=== PATIENT | female | born 1995 | race Caucasian/White ===

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

== ENCOUNTER → 2017-11-05 | Outpatient (REF) | payer OTHER ==
[2017-11-05 22:20] LABS: CHLAMYDIA DNA AMPLIFICATION NEGATIVE (NEGATIVE); GC DNA AMPLIFICATION NEGATIVE (NEGATIVE)
== END ==
LOC: M LAB REF 17:02
DX: R10.2 Pelvic and perineal pain (principal)

== ENCOUNTER → 2017-11-08 | Outpatient (CLI) | payer OTHER | LOC: M RAD 11:14 | DX: R10.2 Pelvic and perineal pain (principal); Z97.5 Presence of (intrauterine) contraceptive device | CPT/HCPCS: 76856 ==

== ENCOUNTER → 2018-08-10 | Outpatient (REF) | payer OTHER | LOC: M LAB REF 09:52 | DX: J03.90 Acute tonsillitis, unspecified (principal) | CPT/HCPCS: 87081 ==

== ENCOUNTER → 2018-08-14 | Outpatient (REF) | payer OTHER ==
[2018-08-14 20:02] LABS: CHLAMYDIA DNA AMPLIFICATION NEGATIVE (NEGATIVE); GC DNA AMPLIFICATION NEGATIVE (NEGATIVE)
== END ==
LOC: M LAB REF 17:24
DX: Z12.4 Encounter for screening for malignant neoplasm of cervix (principal); R87.610 Atypical squamous cells of undetermined significance on cytologic smear of cervix (ASC-US)
CPT/HCPCS: 87591

== ENCOUNTER → 2018-10-17 | Outpatient (REF) | payer OTHER | LOC: M LAB REF 15:18 | PROVIDERS: ATTEND Physician Assistant | DX: J02.9 Acute pharyngitis, unspecified (principal) ==

== ENCOUNTER 2018-12-17 10:50 | Emergency (ER) | payer OTHER ==
[~2018-12-17] VITALS: Ht 170.2 cm; Wt 76.4 kg
[2018-12-17] MEDS ORDERED: SKYL13.5 IU (10:56)
[2018-12-17 11:45] LABS: BASO % 0.4 % (0.0-1.0); EOS % 0.2 % (0.0-3.0); HEMOGLOBIN 15.1 g/dl (12.0-15.5); LYMPH # 2.4 10^3/uL (1.5-6.5); LYMPH % 22.7 % (24.0-44.0); MEAN CORPUSCULAR HEMOGLOBIN 30.9 pg (27.0-33.0); MEAN CORPUSCULAR HGB CONC 32.8 g/dl (32.0-36.5); MEAN CORPUSCULAR VOLUME 94.1 fl (80.0-96.0); MONO # 0.8 10^3/uL (0.0-0.8); MONO % 7.7 % (0.0-5.0); NEUTROPHILS # 7.1 10^3/uL (1.8-7.7); NEUTROPHILS % 68.6 % (36.0-66.0); PLATELET COUNT, AUTOMATED 280 10^3/uL (150-450); RED BLOOD COUNT 4.89 10^6/uL (4.00-5.40); WHITE BLOOD COUNT 10.4 10^3/uL (4.0-10.0)
--- NOTE | 2018-12-17 11:45 | REP ---
CHEST, TWO VIEWS: There is no evidence of acute infiltrate. No pleural effusion is seen. The heart is normal in size. The mediastinal silhouette is unremarkable. The visualized osseous structures are intact. IMPRESSION: No acute pulmonary disease. Electronically Signed by Tristan Alejandre MD 12/17/2018 11:01 P
[2018-12-17 12:25] LABS: BLOOD UREA NITROGEN 10 MG/DL (7-18); CALCIUM LEVEL 9.5 MG/DL (8.5-10.1); CARBON DIOXIDE LEVEL 29 MEQ/L (21-32); CHLORIDE LEVEL 104 MEQ/L (98-107); CREATININE FOR GFR 0.76 MG/DL (0.55-1.30); GLOMERULAR FILTRATION RATE > 60.0 (>60); GLUCOSE, FASTING 98 MG/DL (70-100); POTASSIUM SERUM 4.2 MEQ/L (3.5-5.1); SODIUM LEVEL 139 MEQ/L (136-145)
[2018-12-17] MEDS ORDERED: NAPR-50 PO (12:35)
[2018-12-17 12:39] VITALS: BP 141/68
--- NOTE | 2018-12-17 20:34 | ECGEPIP ---
Stationary ECG Study [facility] - ED Test Date: 2018-12-17 Pat Name: JHONATHAN UNGER Department: Room: - Gender: F Inspector Fabric: AMANDA : 1995 Requested By: ARISTIDES WOOD PA-C. Order Number: [id number] Reading MD: Bill Payan Measurements Intervals [place] Rate: 66 P: 44 DE: 173 QRS: 39 QRSD: 80 T: 31 QT: 389 QTc: 410 Interpretive Statements SINUS RHYTHM Electronically Signed On 12-17-2018 20:33:52 EST by Bill Payan
== END 2018-12-17 12:42 | disposition home or self-care (01) ==
LOC: M ED 10:50
DX: F41.9 Anxiety disorder, unspecified (principal); Z97.5 Presence of (intrauterine) contraceptive device; F17.210 Nicotine dependence, cigarettes, uncomplicated

== ENCOUNTER → 2019-03-06 | Outpatient (REF) | payer OTHER ==
[~2019-03-06] MED LIST: NAPR-837 PO; SKYL13.5 IU
[2019-03-06 20:44] LABS: CHLAMYDIA DNA AMPLIFICATION NEGATIVE (NEGATIVE); GC DNA AMPLIFICATION NEGATIVE (NEGATIVE)
== END ==
LOC: M LAB REF 16:53
PROVIDERS: ATTEND Obstetrics & Gynecology
DX: Z11.3 Encounter for screening for infections with a predominantly sexual mode of transmission (principal)

== ENCOUNTER → 2019-05-14 | Outpatient (REF) | payer OTHER ==
[2019-05-14 13:05] LABS: BASO # 0.1 10^3/uL (0.0-0.2); BASO % 0.7 % (0.0-1.0); C REACTIVE PROTEIN QUANTITATIV < 0.30 MG/DL (0.00-0.30); EOS # 0.1 10^3/uL (0.0-0.50); EOS % 1.1 % (0.0-3.0); HEMATOCRIT 44.9 % (36.0-47.0); HEMOGLOBIN 14.8 g/dl (12.0-15.5); LYMPH # 2.4 10^3/uL (1.5-6.5); LYMPH % 34.3 % (24.0-44.0); MEAN CORPUSCULAR HEMOGLOBIN 31.3 pg (27.0-33.0); MEAN CORPUSCULAR VOLUME 94.9 fl (80.0-96.0); MONO # 0.4 10^3/uL (0.0-0.8); NEUTROPHILS # 4.1 10^3/uL (1.8-7.7); NEUTROPHILS % 57.8 % (36.0-66.0); PLATELET COUNT, AUTOMATED 287 10^3/uL (150-450); RED BLOOD COUNT 4.73 10^6/uL (4.00-5.40); RHEUMATOID FACTOR QUANT 22.3 IU/ML (<15.0)
[2019-05-14 14:47] LABS: ERYTHROCYTE SEDIMENTATION RATE 6 mm/hr (0-20)
[2019-05-21 00:14] LABS: ANCA-ATYPICAL <1:20 titer (Neg:<1:20); ANGIOTENSIN 1 CONVERTING ENZYM 33 U/L (14-82); ANTI DOUBLE STRAND-DNA AB 11 IU/mL (0-9); ANTINUCLEAR ANTIBODIES DIRECT Positive (Negative); CYCLIC CITRULLINATED PEPTIDE 6 units (0-19); CYTOPLASMIC NEUTROP AB ANCA-C <1:20 titer (Neg:<1:20); HLA-B27 Negative (.); Lyme Disease IgG Ab 18 kDa Ban Present (.); Lyme Disease IgG Ab 23 kDa Ban Absent (.); Lyme Disease IgG Ab 28 kDa Ban Present (.); Lyme Disease IgG Ab 30 kDa Ban Absent (.); Lyme Disease IgG Ab 39 kDa Ban Absent (.); Lyme Disease IgG Ab 41 kDa Ban Present (.); Lyme Disease IgG Ab 45 kDa Ban Absent (.); Lyme Disease IgG Ab 58 kDa Ban Absent (.); Lyme Disease IgG Ab 66 kDa Ban Absent (.); Lyme Disease IgG Ab 93 kDa Ban Present (.); Lyme Disease IgG West Blot Int Negative (.); Lyme Disease IgG/IgM Antibodie 0.97 ISR (0.00-0.90); Lyme Disease IgM Ab 23 kDa Ban Present (.); Lyme Disease IgM Ab 39 kDa Ban Absent (.); Lyme Disease IgM Ab 41 kDa Ban Absent (.); Lyme Disease IgM Ab Quantitati 0.81 index (0.00-0.79); Lyme Disease IgM West Blot Int Negative (.); PERINUCLEAR AB ANCA-P <1:20 titer (Neg:<1:20); RNP ANTIBODIES 0.3 AI (0.0-0.9); SJOGREN'S ANTI SS-A <0.2 AI (0.0-0.9); SJOGREN'S ANTI SS-B <0.2 AI (0.0-0.9); SMITH ANTIBODIES <0.2 AI (0.0-0.9); TREPONEMA ANTIBODY IgM <0.9 I.V. (.)
== END ==
LOC: M LABDRWAD 12:08
PROVIDERS: ATTEND Ophthalmology
DX: H20.9 Unspecified iridocyclitis (principal)

== ENCOUNTER → 2019-05-26 | Outpatient (REF) | payer OTHER | LOC: M LAB REF 16:17 | PROVIDERS: ATTEND Physician Assistant Medical | DX: N39.0 Urinary tract infection, site not specified (principal) ==

== ENCOUNTER 2019-07-05 00:50 | Emergency (ER) | payer OTHER ==
[~2019-07-05] VITALS: Ht 167.6 cm; Wt 79.5 kg
[2019-07-05] MEDS ORDERED: ONDANSETRON 4 MG ORAL DISINTEGRATING TAB (Q0162 PER 1MG) PO ONE (02:45)
[2019-07-05] MEDS ORDERED: ADACEL/BOOSTRIX VACCINE (DIPHTH/PERTUSS/ACELL/TETANUS)0.5ML SYR (90715) IM ONE (03:00)
[2019-07-05] MEDS ORDERED: cefTRIAXone SOD 1 GM in D5W MINI-BAG PLUS 50 ML IV ONE (03:00)
[2019-07-05] MEDS ORDERED: KETOROLAC 30 MG/ML VIAL (J1885) IV ONE (03:00)
[2019-07-05] MEDS ORDERED: LIDOCAINE 1% MDV 20ML VIAL IM ONE (03:00)
[2019-07-05] MEDS ORDERED: AUGM875T28 PO (04:32)
[2019-07-05] MEDS ORDERED: AUGMENTIN 875 MG TAB PO ONE (04:45)
[2019-07-05 04:56] VITALS: BP 134/79
--- NOTE | 2019-07-06 07:06 | REP ---
BILATERAL WRIST SERIES: Four views of bilateral wrists were performed. There is no acute fracture, dislocation or intrinsic bone disease. Joint spaces are normal. No radiopaque foreign body is seen in the soft-tissues. IMPRESSION: Negative bilateral wrist series. Electronically Signed by Tristan Alejandre MD 07/06/2019 09:10 A
--- NOTE | 2019-07-06 07:09 | REP ---
BILATERAL HAND SERIES: Four views of the bilateral hands are performed. There is no evidence of acute fracture, dislocation, or intrinsic bone disease. Joint spaces are unremarkable. No radiopaque foreign body is seen in the soft-tissues. IMPRESSION: Negative bilateral hand series. Electronically Signed by Tristan Alejandre MD 07/06/2019 09:10 A
== END 2019-07-05 04:57 | disposition home or self-care (01) ==
LOC: M ED 00:50
DX: S61.412A Laceration without foreign body of left hand, initial encounter (principal); S61.411A Laceration without foreign body of right hand, initial encounter; S61.432A Puncture wound without foreign body of left hand, initial encounter; S61.431A Puncture wound without foreign body of right hand, initial encounter; S61.239A Puncture wound without foreign body of unspecified finger without damage to nail, initial encounter; S60.511A Abrasion of right hand, initial encounter; S60.512A Abrasion of left hand, initial encounter; S60.419A Abrasion of unspecified finger, initial encounter; W54.0XXA Bitten by dog, initial encounter; Y92.098 Other place in other non-institutional residence as the place of occurrence of the external cause; F17.200 Nicotine dependence, unspecified, uncomplicated; Z97.5 Presence of (intrauterine) contraceptive device
CPT/HCPCS: 12001; 73110; 73130; 90471; 90715; 96374; 96375; 99284; J0696; J1885; Q0162

== ENCOUNTER 2019-09-01 02:48 | Emergency (ER) | payer MEDICAID, OTHER ==
[~2019-09-01] VITALS: Ht 167.6 cm; Wt 77.3 kg
[2019-09-01 02:48] VITALS: BP 144/67
[~2019-09-01 02:48] MED LIST changes: -PARO20TA3
[2019-09-01] MEDS ORDERED: PARO20TA3 (03:40)
== END 2019-09-01 05:59 | disposition left against medical advice (07) ==
LOC: M ED 02:48
DX: Z53.21 Procedure and treatment not carried out due to patient leaving prior to being seen by health care provider (principal)

== ENCOUNTER → 2019-09-01 | Outpatient (CLI) | payer MEDICAID ==
[~2019-09-01] MED LIST changes: +AUGM875T28 PO; +PARO20TA3
--- NOTE | 2019-09-01 14:33 | REP ---
Four views left wrist: 09/01/2019. Indication: Pain following injury. Comparison: 07/05/2019. Findings: There is no acute fracture, subluxation or dislocation. No lytic or blastic lesions of the visualized bones are present. Impression: No acute osseous left wrist injury. Electronically Signed by Puneet Aguirre DO 09/01/2019 02:24 P
== END ==
LOC: M ADAMS 14:00
PROVIDERS: ATTEND Family Medicine
DX: S41.152A Open bite of left upper arm, initial encounter (principal); W18.30XA Fall on same level, unspecified, initial encounter; Y92.009 Unspecified place in unspecified non-institutional (private) residence as the place of occurrence of the external cause

== ENCOUNTER → 2019-09-29 | Outpatient (CLI) | payer MEDICAID, OTHER ==
[~2019-09-29] MED LIST changes: +PARO20TA3
--- NOTE | 2019-09-29 17:40 | REP ---
Four views left hand: 09/29/2019. Indication: Left hand pain. Comparison: 07/05/2019. Findings: There is no acute fracture, subluxation or dislocation. No lytic or blastic lesions are present. No focal soft tissue abnormalities are detected. Joint spaces are unremarkable. Impression: No acute osseous injury of the left hand. Electronically Signed by Puneet Aguirre DO 09/29/2019 05:31 P
== END ==
LOC: M ADAMS 17:09
PROVIDERS: ATTEND Physician Assistant
DX: M79.642 Pain in left hand (principal)

== ENCOUNTER → 2019-09-30 | Outpatient (REF) | payer OTHER, MEDICAID ==
[2019-09-30 19:31] LABS: CHLAMYDIA DNA AMPLIFICATION NEGATIVE (NEGATIVE); GC DNA AMPLIFICATION NEGATIVE (NEGATIVE)
== END ==
LOC: M SFHCSACK 16:34
PROVIDERS: ATTEND Obstetrics & Gynecology
DX: Z01.419 Encounter for gynecological examination (general) (routine) without abnormal findings (principal)

== ENCOUNTER → 2019-10-21 | Outpatient (CLI) | payer OTHER ==
--- NOTE | 2019-10-22 07:11 | ECHO ---
DATE OF PROCEDURE: 10/21/2019 REFERRING PROVIDER: Shital Doty's delivery driver assistant. INDICATION: Chest pain unspecified. HEIGHT: 5 feet 6 inches. WEIGHT: 138 pounds. 2D MEASUREMENTS: Ventricular septum - 0.86 cm Posterior wall - 0.91 cm Left ventricle diastole - 4.6 cm Left ventricle systole - 3.0 cm Aortic annulus - 1.9 cm Aortic root - 2.4 cm Left atrium 3.0 cm Inferior vena cava - 1.7 cm DOPPLER MEASUREMENTS: No aortic regurgitation. Trace mitral regurgitation within normal limits. Trace tricuspid regurgitation within normal limits. Aortic valve velocity -143 cm/s LVOT velocity -121 cm/s Mitral E velocity -104 cm/s Mitral A velocity - 59.2 cm/s Mitral deceleration time - 244 ms Pulmonary acceleration time - 151 ms MITRAL ANNULAR TISSUE DOPPLER: E prime septal - 8.3 cm/s E prime lateral - 12.1 cm/s DESCRIPTION: Rhythm was sinus. Image quality was good. This is a 2D, M-mode, color flow Doppler and pulsed wave Doppler examination including mitral annular tissue Doppler. CONCLUSIONS: 1. Normal echocardiogram Doppler. 2. No pericardial effusion. 3. Normal left ventricle size and systolic function. Normal LV wall thickness. Normal regional LV wall motion and wall thickness. Normal LV systolic function, LVEF 60% by visual estimate. Normal LV diastolic function.
== END ==
LOC: M CARPUL 08:30
PROVIDERS: ATTEND Physician Assistant
DX: R07.89 Other chest pain (principal)

== ENCOUNTER → 2019-11-05 | Outpatient (REF) | payer OTHER, MEDICAID ==
[2019-11-05 12:28] LABS: BASO # 0.1 10^3/uL (0.0-0.2); BASO % 0.7 % (0.0-1.0); EOS # 0.1 10^3/uL (0.0-0.5); EOS % 1.3 % (0.0-3.0); HEMOGLOBIN 15.2 g/dl (12.0-15.5); LYMPH # 2.3 10^3/uL (1.5-5.0); LYMPH % 33.3 % (24.0-44.0); MEAN CORPUSCULAR HEMOGLOBIN 31.2 pg (27.0-33.0); MEAN CORPUSCULAR VOLUME 94.5 fl (80.0-96.0); MONO # 0.5 10^3/uL (0.0-0.8); MONO % 7.7 % (0.0-5.0); NEUTROPHILS # 3.8 10^3/uL (1.5-8.5); NEUTROPHILS % 56.9 % (36.0-66.0); PLATELET COUNT, AUTOMATED 267 10^3/uL (150-450); RED BLOOD COUNT 4.87 10^6/uL (4.00-5.40); WHITE BLOOD COUNT 6.8 10^3/uL (4.0-10.0)
[2019-11-05 12:33] LABS: ALBUMIN 4.5 GM/DL (3.2-5.2); ALT/SGPT 26 U/L (12-78); BILIRUBIN,TOTAL 0.4 MG/DL (0.2-1.0); BLOOD UREA NITROGEN 15 MG/DL (7-18); C REACTIVE PROTEIN QUANTITATIV < 0.30 MG/DL (0.00-0.30); CALCIUM LEVEL 9.5 MG/DL (8.5-10.1); CARBON DIOXIDE LEVEL 28 MEQ/L (21-32); CHLORIDE LEVEL 107 MEQ/L (98-107); COMPLEMENT C3 119 MG/DL (90-180); COMPLEMENT C4 17 MG/DL (10-40); GLOMERULAR FILTRATION RATE > 60.0 (>60); GLUCOSE, FASTING 91 MG/DL (70-100); POTASSIUM SERUM 4.2 MEQ/L (3.5-5.1); SODIUM LEVEL 141 MEQ/L (136-145); TOTAL PROTEIN 8.6 GM/DL (6.4-8.2)
[2019-11-05 12:47] LABS: CREATININE,RANDOM URINE 92.2 MG/DL
[2019-11-05 14:07] LABS: ERYTHROCYTE SEDIMENTATION RATE 7 mm/hr (0-20)
[2019-11-05 19:55] LABS: TOTAL PROTEIN,RANDOM URINE 12.9 MG/DL (0.0-12.0)
[2019-11-06 10:25] LABS: HEPATITIS B SURFACE ANTIGEN NEGATIVE (NEGATIVE)
[2019-11-06 10:53] LABS: HEPATITIS C VIRUS ABY INDEX < 0.0 INDEX (<0.8)
== END ==
LOC: M SFHCRHEU 11:03
PROVIDERS: ATTEND Internal Medicine
DX: M06.4 Inflammatory polyarthropathy (principal); R76.8 Other specified abnormal immunological findings in serum

== ENCOUNTER → 2019-11-20 | Outpatient (REF) | payer OTHER, MEDICAID | LOC: M SFHCADAM 09:43 | PROVIDERS: ATTEND Physician Assistant | DX: M54.32 Sciatica, left side (principal) ==

== ENCOUNTER → 2020-01-16 | Outpatient (REF) | payer OTHER | LOC: M LAB REF 17:47 | PROVIDERS: ATTEND Physician Assistant | DX: J02.9 Acute pharyngitis, unspecified (principal) ==

== ENCOUNTER 2020-04-13 12:46 | Emergency (ER) | payer OTHER ==
[~2020-04-13] VITALS: Ht 167.6 cm; Wt 83.6 kg
[2020-04-13 12:46] VITALS: BP 134/82
[2020-04-13] MEDS ORDERED: CEPHALEXIN 500 MG CAP PO ONE (13:45)
[2020-04-13] MEDS ORDERED: KEFL500C17 PO (13:47)
--- NOTE | 2020-04-13 13:50 | REP ---
Clinical: Trauma. Laceration. Technique: AP, lateral, bilateral oblique views left second digit . Findings: The osseous structures and joint spaces are intact and normal. There is no evidence for acute fracture or dislocation. Surrounding soft tissues are unremarkable. No subcutaneous emphysema or radiodense foreign body. Impression: No acute fracture or dislocation. No foreign body. Electronically Signed by Carlos Cordon MD 04/13/2020 01:41 P
== END 2020-04-13 14:03 | disposition home or self-care (01) ==
LOC: M ED 12:46
DX: S61.211A Laceration without foreign body of left index finger without damage to nail, initial encounter (principal); W18.09XA Striking against other object with subsequent fall, initial encounter; Y92.9 Unspecified place or not applicable; Y93.9 Activity, unspecified; Y99.8 Other external cause status

== ENCOUNTER → 2020-06-13 | Outpatient (REF) | payer OTHER, MEDICAID ==
[~2020-06-13] MED LIST changes: +BUPR1TAB53 PO; +KEFL500C17 PO; +OMEP-218 PO; +PYRI1TAB5 PO
[2020-06-13 19:08] LABS: BASO % 0.5 % (0.0-1.0); EOS # 0.1 10^3/uL (0.0-0.5); EOS % 0.6 % (0.0-3.0); HEMATOCRIT 41.1 % (36.0-47.0); HEMOGLOBIN 13.4 g/dl (12.0-15.5); MEAN CORPUSCULAR HEMOGLOBIN 30.8 pg (27.0-33.0); MEAN CORPUSCULAR HGB CONC 32.6 g/dl (32.0-36.5); MEAN CORPUSCULAR VOLUME 94.5 fl (80.0-96.0); MONO # 0.5 10^3/uL (0.0-0.8); MONO % 6.6 % (0.0-5.0); NEUTROPHILS # 4.6 10^3/uL (1.5-8.5); NEUTROPHILS % 56.2 % (36.0-66.0); PLATELET COUNT, AUTOMATED 240 10^3/uL (150-450); RED BLOOD COUNT 4.35 10^6/uL (4.00-5.40); WHITE BLOOD COUNT 8.2 10^3/uL (4.0-10.0)
[2020-06-13 19:14] LABS: ALBUMIN 4.2 GM/DL (3.2-5.2); ALT/SGPT 20 U/L (12-78); BILIRUBIN,TOTAL 0.4 MG/DL (0.2-1.0); BLOOD UREA NITROGEN 12 MG/DL (7-18); CALCIUM LEVEL 9.3 MG/DL (8.5-10.1); CARBON DIOXIDE LEVEL 28 MEQ/L (21-32); CHLORIDE LEVEL 106 MEQ/L (98-107); GLOMERULAR FILTRATION RATE > 60.0 (>60); GLUCOSE, FASTING 104 MG/DL (70-100); LIPASE 93 U/L (73-393); POTASSIUM SERUM 4.2 MEQ/L (3.5-5.1); SODIUM LEVEL 139 MEQ/L (136-145); TOTAL PROTEIN 7.6 GM/DL (6.4-8.2)
== END ==
LOC: M LABDRWAD 13:20
PROVIDERS: ATTEND Physician Assistant
DX: R11.2 Nausea with vomiting, unspecified (principal); R10.11 Right upper quadrant pain; R19.7 Diarrhea, unspecified

== ENCOUNTER → 2020-07-05 | Outpatient (CLI) | payer OTHER ==
--- NOTE | 2020-07-15 07:42 | REP ---
GALLBLADDER ULTRASOUND CLINICAL: Right upper quadrant pain. TECHNIQUE: Real-time samuel scale ultrasound examination using curved array transducer. FINDINGS: The liver includes a 17 x 7 x 16 mm hypodense lesion in the left lobe likely a benign cyst and is otherwise normal in appearance and echotexture. The pancreas is unremarkable, although limited due to interposed bowel gas. The gallbladder is normal and without gallstones, wall thickening, or pericholecystic fluid. No biliary ductal dilatation is appreciated and the common bile duct measures 2.9 mm in diameter. Right kidney is normal in reniform shape without hydronephrosis and measures 10.5 x 5.9 x 4.1 cm. No ascites in the visualized right upper quadrant. IMPRESSION: Benign simple hepatic cyst. Otherwise normal right upper quadrant ultrasound. MTDD
== END ==
LOC: M RAD 08:28
PROVIDERS: ATTEND Physician Assistant
DX: R10.11 Right upper quadrant pain (principal); K76.89 Other specified diseases of liver

== ENCOUNTER → 2020-08-08 | Outpatient (REF) | payer OTHER, MEDICAID ==
[2020-08-08 13:19] LABS: BASO % 0.4 % (0.0-1.0); EOS # 0.1 10^3/uL (0.0-0.5); EOS % 0.5 % (0.0-3.0); HEMATOCRIT 42.3 % (36.0-47.0); LYMPH # 1.4 10^3/uL (1.5-5.0); LYMPH % 14.3 % (24.0-44.0); MEAN CORPUSCULAR HGB CONC 33.1 g/dl (32.0-36.5); MEAN CORPUSCULAR VOLUME 93.8 fl (80.0-96.0); MONO # 0.9 10^3/uL (0.0-0.8); MONO % 8.7 % (0.0-5.0); NEUTROPHILS # 7.5 10^3/uL (1.5-8.5); NEUTROPHILS % 75.7 % (36.0-66.0); PLATELET COUNT, AUTOMATED 242 10^3/uL (150-450); RED BLOOD COUNT 4.51 10^6/uL (4.00-5.40); WHITE BLOOD COUNT 9.9 10^3/uL (4.0-10.0)
[2020-08-08 13:47] LABS: ALBUMIN 4.7 GM/DL (3.2-5.2); ALT/SGPT 11 U/L (12-78); BILIRUBIN,TOTAL 0.8 MG/DL (0.2-1.0); BLOOD UREA NITROGEN 6 MG/DL (7-18); CALCIUM LEVEL 9.7 MG/DL (8.5-10.1); CARBON DIOXIDE LEVEL 29 MEQ/L (21-32); CHLORIDE LEVEL 106 MEQ/L (98-107); CREATININE FOR GFR 0.79 MG/DL (0.55-1.30); GLOMERULAR FILTRATION RATE > 60.0 (>60); GLUCOSE, FASTING 99 MG/DL (70-100); LIPASE 72 U/L (73-393); POTASSIUM SERUM 4.7 MEQ/L (3.5-5.1); SODIUM LEVEL 138 MEQ/L (136-145); TOTAL PROTEIN 8.2 GM/DL (6.4-8.2)
[2020-08-08 13:53] LABS: H PYLORI QUALITATIVE IgG NEGATIVE (NEGATIVE)
== END ==
LOC: M LAB REF 12:41 → M LABDRWAD 12:41
PROVIDERS: ATTEND Physician Assistant
DX: R10.10 Upper abdominal pain, unspecified (principal)

== ENCOUNTER → 2020-08-10 | Outpatient (REF) | payer OTHER, MEDICAID ==
[2020-08-10 16:45] LABS: CHLAMYDIA DNA AMPLIFICATION NEGATIVE (NEGATIVE); GC DNA AMPLIFICATION NEGATIVE (NEGATIVE)
== END ==
LOC: M SFHCWAGY 13:03
PROVIDERS: ATTEND Obstetrics & Gynecology
DX: Z11.3 Encounter for screening for infections with a predominantly sexual mode of transmission (principal)

== ENCOUNTER 2020-08-12 13:12 | Emergency (ER) | payer MEDICAID, OTHER ==
[~2020-08-12] VITALS: Ht 167.6 cm; Wt 72.6 kg
[~2020-08-12 13:12] MED LIST changes: -BUPR1TAB53 PO; -OMEP-218 PO; -PYRI1TAB5 PO
[2020-08-12] MEDS ORDERED: OMEP-218 PO (14:07)
[2020-08-12] MEDS ORDERED: BUPR1TAB53 PO (14:07)
[2020-08-12 14:11] LABS: BASO % 0.4 % (0.0-1.0); EOS % 0.2 % (0.0-3.0); HEMATOCRIT 40.5 % (36.0-47.0); HEMOGLOBIN 13.5 g/dl (12.0-15.5); LYMPH # 2.2 10^3/uL (1.5-5.0); MEAN CORPUSCULAR HEMOGLOBIN 30.5 pg (27.0-33.0); MEAN CORPUSCULAR HGB CONC 33.3 g/dl (32.0-36.5); MEAN CORPUSCULAR VOLUME 91.4 fl (80.0-96.0); MONO # 0.8 10^3/uL (0.0-0.8); MONO % 9.3 % (0.0-5.0); NEUTROPHILS # 5.3 10^3/uL (1.5-8.5); NEUTROPHILS % 63.9 % (36.0-66.0); PLATELET COUNT, AUTOMATED 282 10^3/uL (150-450); RED BLOOD COUNT 4.43 10^6/uL (4.00-5.40); WHITE BLOOD COUNT 8.3 10^3/uL (4.0-10.0)
--- NOTE | 2020-08-12 14:35 | REP ---
INDICATION: R CVA tenderness with diff voiding r/o kidney stone COMPARISON: Comparison CT study June 17, 2012.. TECHNIQUE: Helical scanning is acquired in 4 mm axial images were reformatted. Coronal and sagittal MPR images were generated and reviewed. FINDINGS: Digital preliminary animated cartoons painter radiograph demonstrates a normal bowel gas pattern. The lung bases are clear on axial CT images. The liver is normal in size. There is homogeneous in texture except for a low-density area in the left lobe of the liver consistent with focal fatty infiltration. Similar less pronounced area was seen here and 2011. Spleen is unremarkable. Normal adrenal glands. Kidneys are morphologically intact. There is no evidence of hydronephrosis or intrarenal calculus on either side. No abnormality is noted in the pancreas or gallbladder. No retroperitoneal mass or adenopathy is seen. Small and large bowel loops are unremarkable. No ureteral or bladder calculus is seen. Uterus is normal in appearance. A normal appendix is seen in the right lower quadrant. Bone window settings show no bony destructive lesion. IMPRESSION: No urinary tract calculus or hydronephrosis seen. Unremarkable CT abdomen and pelvis without IV or oral contrast. Focal fatty infiltration of the liver in the left lobe noted incidentally. <Electronically signed by Evan Bennett > 08/12/20 [id number]
[2020-08-12 14:40] LABS: ALBUMIN 4.7 GM/DL (3.2-5.2); ALT/SGPT 15 U/L (12-78); BILIRUBIN,DIRECT 0.1 MG/DL (0.0-0.2); BILIRUBIN,TOTAL 0.5 MG/DL (0.2-1.0); BLOOD UREA NITROGEN 9 MG/DL (7-18); CALCIUM LEVEL 9.2 MG/DL (8.5-10.1); CARBON DIOXIDE LEVEL 27 MEQ/L (21-32); CHLORIDE LEVEL 107 MEQ/L (98-107); CREATININE FOR GFR 0.77 MG/DL (0.55-1.30); GLOMERULAR FILTRATION RATE > 60.0 (>60); GLUCOSE, FASTING 94 MG/DL (70-100); LIPASE 102 U/L (73-393); POTASSIUM SERUM 4.3 MEQ/L (3.5-5.1); SODIUM LEVEL 139 MEQ/L (136-145); TOTAL PROTEIN 8.2 GM/DL (6.4-8.2)
[2020-08-12] MEDS ORDERED: PYRI1TAB5 PO (15:42)
[2020-08-12 16:09] VITALS: BP 132/82
== END 2020-08-12 16:10 | disposition home or self-care (01) ==
LOC: M ED 13:12
DX: N30.91 Cystitis, unspecified with hematuria (principal); K76.0 Fatty (change of) liver, not elsewhere classified; M06.9 Rheumatoid arthritis, unspecified; Z79.899 Other long term (current) drug therapy

== ENCOUNTER → 2020-10-19 | Outpatient (REF) | payer OTHER ==
[~2020-10-19] MED LIST changes: +BUPR1TAB53 PO; +OMEP-218 PO; +PYRI1TAB5 PO
[2020-10-19 12:58] LABS: BASO % 0.6 % (0.0-1.0); EOS # 0.1 10^3/uL (0.0-0.5); EOS % 0.9 % (0.0-3.0); HEMATOCRIT 41.7 % (36.0-47.0); HEMOGLOBIN 13.5 g/dl (12.0-15.5); LYMPH # 2.3 10^3/uL (1.5-5.0); LYMPH % 35.9 % (24.0-44.0); MEAN CORPUSCULAR HEMOGLOBIN 30.5 pg (27.0-33.0); MEAN CORPUSCULAR HGB CONC 32.4 g/dl (32.0-36.5); MEAN CORPUSCULAR VOLUME 94.3 fl (80.0-96.0); MONO # 0.5 10^3/uL (0.0-0.8); MONO % 8.3 % (0.0-5.0); NEUTROPHILS # 3.5 10^3/uL (1.5-8.5); NEUTROPHILS % 54.1 % (36.0-66.0); PLATELET COUNT, AUTOMATED 267 10^3/uL (150-450); RED BLOOD COUNT 4.42 10^6/uL (4.00-5.40); WHITE BLOOD COUNT 6.5 10^3/uL (4.0-10.0)
[2020-10-19 13:23] LABS: ALBUMIN 4.9 GM/DL (3.2-5.2); ALT/SGPT 18 U/L (12-78); BILIRUBIN,TOTAL 0.4 MG/DL (0.2-1.0); BLOOD UREA NITROGEN 9 MG/DL (7-18); CALCIUM LEVEL 9.4 MG/DL (8.5-10.1); CARBON DIOXIDE LEVEL 30 MEQ/L (21-32); CHLORIDE LEVEL 107 MEQ/L (98-107); GLOMERULAR FILTRATION RATE > 60.0 (>60); GLUCOSE, FASTING 89 MG/DL (70-100); POTASSIUM SERUM 4.8 MEQ/L (3.5-5.1); RHEUMATOID FACTOR QUANT 10.2 IU/ML (<15.0); SODIUM LEVEL 140 MEQ/L (136-145); TOTAL PROTEIN 7.9 GM/DL (6.4-8.2)
[2020-10-19 13:24] LABS: ERYTHROCYTE SEDIMENTATION RATE 4 mm/hr (0-20)
[2020-10-21 00:07] LABS: ANA (HEP2) Negative (.); CYCLIC CITRULLINATED PEPTIDE 4 units (0-19); SSA SJOGRENS A <0.2 AI (0.0-0.9); SSB SJOGRENS B <0.2 AI (0.0-0.9)
== END ==
LOC: M SFHCRHEU 09:22
PROVIDERS: ATTEND Internal Medicine
DX: M06.4 Inflammatory polyarthropathy (principal); M35.01 Sjogren syndrome with keratoconjunctivitis; R76.8 Other specified abnormal immunological findings in serum

== ENCOUNTER 2020-10-24 10:55 | Observation (INO) | payer OTHER ==
[~2020-10-24] VITALS: Ht 167.6 cm; Wt 61.5 kg
[2020-10-24] MEDS ORDERED: BUPR300T92 PO (11:00)
[2020-10-24 11:38] LABS: BASO % 0.6 % (0.0-1.0); EOS % 0.1 % (0.0-3.0); HEMATOCRIT 41.3 % (36.0-47.0); HEMOGLOBIN 13.5 g/dl (12.0-15.5); LYMPH # 1.8 10^3/uL (1.5-5.0); LYMPH % 25.2 % (24.0-44.0); MEAN CORPUSCULAR HEMOGLOBIN 30.8 pg (27.0-33.0); MEAN CORPUSCULAR HGB CONC 32.7 g/dl (32.0-36.5); MEAN CORPUSCULAR VOLUME 94.1 fl (80.0-96.0); MONO # 0.6 10^3/uL (0.0-0.8); MONO % 8.6 % (0.0-5.0); NEUTROPHILS # 4.7 10^3/uL (1.5-8.5); NEUTROPHILS % 65.2 % (36.0-66.0); PLATELET COUNT, AUTOMATED 252 10^3/uL (150-450); RED BLOOD COUNT 4.39 10^6/uL (4.00-5.40); WHITE BLOOD COUNT 7.1 10^3/uL (4.0-10.0)
[2020-10-24] MEDS ORDERED: CHARCOAL ACTIVATED LIQUID 25 GM/120 ML BTL PO ONE (12:00)
[2020-10-24] MEDS ORDERED: NS 1,000 ML IV ONE (12:00)
[2020-10-24 12:17] LABS: HCG, SERUM QUALITATIVE NEGATIVE (NEGATIVE)
[2020-10-24 12:19] LABS: ALBUMIN 4.7 GM/DL (3.2-5.2); ALT/SGPT 15 U/L (12-78); BILIRUBIN,DIRECT < 0.1 MG/DL (0.0-0.2); BILIRUBIN,TOTAL 0.4 MG/DL (0.2-1.0); BLOOD UREA NITROGEN 11 MG/DL (7-18); CALCIUM LEVEL 9.1 MG/DL (8.5-10.1); CARBON DIOXIDE LEVEL 28 MEQ/L (21-32); CHLORIDE LEVEL 106 MEQ/L (98-107); CPK CREATINE PHOSPHOKINASE 78 U/L (26-192); CREATININE FOR GFR 0.73 MG/DL (0.55-1.30); GLOMERULAR FILTRATION RATE > 60.0 (>60); GLUCOSE, FASTING 82 MG/DL (70-100); POTASSIUM SERUM 3.9 MEQ/L (3.5-5.1); SALICYLATE LEVEL 2.8 MG/DL (5.0-30.0); SODIUM LEVEL 139 MEQ/L (136-145); THYROID STIMULATING HORMONE 0.621 uIU/ML (0.358-3.740); TOTAL PROTEIN 7.7 GM/DL (6.4-8.2)
[2020-10-24] MEDS ORDERED: SULF500T2 PO (12:19)
[2020-10-24 12:20] LABS: ACETAMINOPHEN LEVEL < 2.0 UG/ML (10.0-30.0); ETHYL ALCOHOL (ETHANOL) < 0.003 % (0.000-0.010)
[2020-10-24 12:38] LABS: RSV AMPLIFICATION NEGATIVE (NEGATIVE)
[2020-10-24] MEDS ORDERED: CEPACOL LOZENGE PO PRN (12:45)
[2020-10-24] MEDS ORDERED: CEPACOL LOZENGE PO ONE (13:00)
[2020-10-24] MEDS ORDERED: CETIRIZINE (ZyrTEC) 10 MG TAB PO ONE (13:00)
[2020-10-24] MEDS ORDERED: MONTELUKAST 10 MG TAB PO ONE (13:00)
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
[2020-10-24] MEDS: NS 1,000 ML IV SCH ×3 (15:00→18:17)
[2020-10-24 15:15] LABS: AMPHETAMINES LEVEL URINE NEGATIVE (NEGATIVE); BARBITURATES URINE NEGATIVE (NEGATIVE); BENZODIAZEPINES URINE NEGATIVE (NEGATIVE); CANNABINOIDS URINE POSITIVE (NEGATIVE); COCAINE METABOLITE URINE NEGATIVE (NEGATIVE); METHADONE URINE NEGATIVE (NEGATIVE); OPIATES URINE NEGATIVE (NEGATIVE); PHENCYCLIDINE URINE NEGATIVE (NEGATIVE)
[2020-10-25] MEDS: NS 1,000 ML IV SCH ×4 (01:00→20:32)
--- NOTE | 2020-10-25 08:49 | ECGEPIP ---
[facility] - ED Test Date: 2020-10-24 Pat Name: JHONATHAN UNGER Department: Room: - Gender: Female Gauntlet Pairer: janessa : 1995 Requested By: Jake Hughes Order Number: [id number] Reading MD: Janessa Garcia Measurements Intervals [place] Rate: 69 P: 46 [place]: 169 QRS: 39 QRSD: 86 T: 38 QT: 364 QTc: 392 Interpretive Statements SINUS RHYTHM similar to prior EKG 12/17/18 Electronically Signed on 10-25-2020 8:49:28 EST by Janessa Garcia
[2020-10-25 10:45] LABS: HEMATOCRIT 42.6 % (36.0-47.0); HEMOGLOBIN 13.8 g/dl (12.0-15.5); MEAN CORPUSCULAR HEMOGLOBIN 30.5 pg (27.0-33.0); MEAN CORPUSCULAR HGB CONC 32.4 g/dl (32.0-36.5); PLATELET COUNT, AUTOMATED 235 10^3/uL (150-450); RED BLOOD COUNT 4.53 10^6/uL (4.00-5.40); WHITE BLOOD COUNT 6.6 10^3/uL (4.0-10.0)
[2020-10-25 11:35] LABS: BLOOD UREA NITROGEN 2 MG/DL (7-18); CALCIUM LEVEL 9.1 MG/DL (8.5-10.1); CARBON DIOXIDE LEVEL 26 MEQ/L (21-32); CHLORIDE LEVEL 109 MEQ/L (98-107); CREATININE FOR GFR 0.63 MG/DL (0.55-1.30); GLOMERULAR FILTRATION RATE > 60.0 (>60); GLUCOSE, FASTING 92 MG/DL (70-100); POTASSIUM SERUM 3.7 MEQ/L (3.5-5.1); SODIUM LEVEL 141 MEQ/L (136-145)
[2020-10-25 14:25] VITALS: BP 123/83
--- NOTE | 2020-10-25 19:34 | ECGEPIP ---
[facility] Test Date: 2020-10-25 Pat Name: JHONATHAN UNGER Department: Room: [facility] Gender: Female Chief Operations Officer: JUSTIN : 1995 Requested By: SHELTON Posada Order Number: [id number] Reading MD: Amena Pena Measurements Intervals [place] Rate: 57 P: 44 [place]: 183 QRS: 39 QRSD: 89 T: 41 QT: 398 QTc: 391 Interpretive Statements SINUS BRADYCARDIA WITH SINUS ARRHYTHMIA SIMILAR TO 10/24/20 Electronically Signed on 10-25-2020 19:34:21 EST by Amena Pena
[2020-10-25 20:00] VITALS: BP 123/83
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
[2020-10-25 22:00] VITALS: BP 132/92
[2020-10-25] MEDS: sulfaSALAzine 500 MG TABEC PO SCH (23:39)
[2020-10-26 06:00] VITALS: BP 119/73
[2020-10-26] MEDS: NS 1,000 ML IV SCH ×2 (06:36→17:00)
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
[2020-10-26] MEDS: sulfaSALAzine 500 MG TABEC PO SCH ×2 (10:10→20:33)
[2020-10-26 14:00] VITALS: BP 125/81
[2020-10-26 22:00] VITALS: BP 126/83
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
[2020-10-27 06:00] VITALS: BP 115/73
[2020-10-27] MEDS: sulfaSALAzine 500 MG TABEC PO SCH (09:29)
--- NOTE | 2020-10-27 21:06 | IPNPDOC ---
Subjective Date Seen The patient was seen on 10/27/20. Subjective Chief Complaint/HPI Ms. Khan is a 25-year-old female with rheumatoid arthritis who is here for suicide attempt with Wellbutrin. She was supposed to go to [facility] yesterday, but due to logistics, she was not able to. Attempted to see her his morning, but she was sleeping. Returned later in the morning and she was already taken down to [facility] Objective Physical Examination Other physical findings She was taken down before I could examine her Assessment /Plan Assessment Ms. Khan is a 25-year-old female with rheumatoid arthritis who is here for suicide attempt with Wellbutrin. She was monitored on telemetry for 24 hours. No events on telemetry. She is medically stable at this time. I contacted psychiatry, Dr. Guzman. Recommendations appreciated. Patient will need [facility] Plan/VTE VTE Prophylaxis Ordered?: Yes Plan 1. Suicidal attempt by Wellbutrin overdose No events on telemetry and repeat EKGs negative to QTc prolongation Medically clear Suicide precautions Psychiatry consulted, recommendations appreciated 2. Rheumatoid arthritis She is on sulfasalazine. We'll restart her medication 3. Depression Psychiatry consulted, recommendations appreciated 4. DVT prophylaxis TEDs Disposition: She was taken down to [facility] VS, I&O, 24H, Fishbone Vital Signs/I&O Vital Signs Date Time Temp Pulse Resp B/P (MAP) Pulse Ox O2 Delivery O2 Flow Rate FiO2 10/27/20 06:00 97.7 64 18 115/73 (87) 98 10/26/20 14:00 Room Air I&O- Last 24 Hours up to 6 AM 10/27/20 05:59 Intake Total 2230 ml Output Total 0 ml Balance 2230 ml Laboratory Data Microbiology Microbiology 10/24/20 Group A Streptococcus Screen (MIKAYLA) - Final, Complete 10/24/20 Group A Streptococcus Screen (MIKAYLA) - Final, Complete EMMY HYATT DO Oct 27, 2020 21:06
== END 2020-10-27 10:07 ==
LOC: M ED 10:55 → M ED INP 10:56 → M MSPAV 10-25 14:27
PROVIDERS: ADMIT General Practice; ATTEND Internal Medicine
DX: T14.91XA Suicide attempt, initial encounter (principal); T43.292A Poisoning by other antidepressants, intentional self-harm, initial encounter; Y92.89 Other specified places as the place of occurrence of the external cause; F41.1 Generalized anxiety disorder; F32.9 Major depressive disorder, single episode, unspecified; M06.9 Rheumatoid arthritis, unspecified
CPT/HCPCS: 36415; 80048; 80076; 80307; 82550; 84443; 84703; 85025; 85027; 87430; 87631; 93005; 93041; 94760; 96360; 96361; 99285; G0480

== ENCOUNTER 2020-10-26 16:22 | Inpatient (IN) | payer MEDICAID, OTHER ==
[~2020-10-26 16:22] MED LIST changes: +BUPR300T92 PO; +SULF500T2 PO
[2020-10-27] MEDS ORDERED: traZODone 50 MG TAB PO PRN (11:00)
[2020-10-27] MEDS ORDERED: MOM 30ML SUSPENSION UDC PO PRN (11:00)
[2020-10-27] MEDS ORDERED: ACETAMINOPHEN TAB 650MG DOSE (2X325MG) PO PRN (11:00)
[2020-10-27] MEDS ORDERED: MAALOX 30 ML SUSP *UDC PO PRN (11:00)
[2020-10-27] MEDS ORDERED: OLANZapine ORAL DISINTEGRATING TAB 5MG PO PRN (11:00)
[2020-10-27 12:16] VITALS: BP 130/90
[2020-10-27 18:00] VITALS: BP 137/87
[2020-10-28 06:16] VITALS: BP 128/81
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
--- NOTE | 2020-10-28 14:25 | HPEPDOC ---
[facility] Medical History & Physical Date of Admission Oct 28, 2020 Date of Service: Oct 28, 2020 Attending Physician: Courtney Wright MD History and Physical MEDICAL H&P HISTORY OF PRESENT ILLNESS: Patient is a 25-year-old female with past medical history of rheumatoid arthritis, depression, anxiety was admitted 10/27/2020 after having attempted overdose on bupropion pills. The patient has had multiple life and family stressors over the past several months including stress within her relationship, her father dying 09/02/2020 from Covid. Hx of anxiety/depression and had previous suicidal attempt in 2018. She follows with behavioral health o/p. Today the patient denies SI/HI, paranoia, AH/VH, increased tearfulness, hopelessness, sleep. REVIEW OF SYSTEMS: CONSTITUTIONAL: Denies lack of energy, unexplained weight gain or weight loss, loss of appetite, fever, night sweats EYES: Denies eye drainage, eye pain, visual changes, dry/irritated eye EARS, NOSE, MOUTH, THROAT: Denies difficulty hearing, ringing in ears, mouth sores, loose teeth, sore throat, facial numbness or pain NECK: Denies swollen glands CARDIOVASCULAR: Denies irregular heartbeat, racing heart, chest pains, swelling of feet or legs, pain in legs with walking RESPIRATORY: Denies shortness of breath, night sweats, wheezing, sputum production, oxygen at home, coughing up blood, cough lasting > 1 month GASTROINTESTINAL: Denies abdominal pain, constipation, bloody stool, diarrhea, heartburn, nausea, vomiting GENITOURINARY: Denies painful urination, bloody urine, frequent urination, urgency, leaking urine, impotence MUSCULOSKELETAL: Denies joint pain, muscle pain, leg swelling INTEGUMENTARY: Denies rash, itching, new skin lesion, change in existing skin lesion, hair loss or increase, breast changes. NEUROLOGICAL: Denies headaches, dizziness, difficulty walking, numbness or tingling PSYCHIATRIC: Denies depression, anxiety, recurrent bad thoughts, mood swings, hallucinations PAST MEDICAL HISTORY: Rheumatoid arthritis Depression Anxiety PAST SURGICAL HISTORY: [place] teeth removal FAMILY HISTORY: Father: DM. Mother: DM, HTN, HLD. Alive SOCIAL HISTORY: No smoking, alcohol. Smokes marijuana daily. Lives with boyfriend. Unemployed. ALLERGIES: Please see below. HOME MEDICATIONS: Please see below. PHYSICAL EXAMINATION: VS: Please see below CONSTITUTIONAL: No acute distress, resting comfortably, AAO x 3 EYES: PERRLA, EOM intact HENT, MOUTH: Normocephalic, atraumatic, moist mucous membranes, NECK: SUPPLE, no JVD, no lymphadenopathy, no carotid bruit CV: Regular rate and rhythm, S1S2 normal, no murmurs/rubs/gallops RESPIRATORY: Clear to auscultation bilaterally, no rales/rhonchi/wheezes GI: BS positive in 4 quadrants, soft, nontender, nondistended, no rebound or guarding, no organomegaly : Deferred MUSCULOSKELETAL: Normal ROM. No cyanosis, clubbing, swelling, joint deformity, extremity edema INTEGUMENTARY: Intact, no rashes, no lesions, no erythema NEUROLOGIC: Cranial Nerves II-XII are intact, no focal deficits PSYCHIATRIC: Mood and affect are normal LABORATORY DATA: Please see below IMAGING: None ASSESSMENT:25 y/o F admitted for unspecified depressive disorder, suicidal attempt. PLAN: Unspecified depressive disorder with suicide attempt. -Plan per psychiatry. Anxiety -Plan per psychiatry Rheumatoid arthritis -C/w home meds after discharge DISPOSITION: Thank you kindly for this consult. Plan per psychiatry team. Vital Signs Vital Signs Date Time Temp Pulse Resp B/P (MAP) Pulse Ox O2 Delivery O2 Flow Rate FiO2 10/28/20 06:16 98.3 78 16 128/81 (97) 96 10/27/20 12:16 Room Air Home Medications Scheduled Sulfasalazine (Sulfasalazine) 500 Mg Tablet, 500 MG PO BID Allergies Coded Allergies: No Known Allergies (Unverified , 07/05/19) A-FIB/CHADSVASC A-FIB History Current/History of A-Fib/PAF?: No Current PO Anticoag Therapy: No Age/Risk Factor Scoring CHADSVASC: CHADSVASC Response (Comments) Value Age Risk Factor Age < 65 years old 0 Gender Risk Factor Female 1 Hx of CHF No 0 Hx of HTN No 0 Hx of Stroke/TIA/or VTE No 0 Hx of Diabetes No 0 Hx of Vascular Disease No 0 Total 1 Treatment Treatment ordered: NONE Other anticoagulant ordered: none Courtney Wright MD Oct 28, 2020 14:25
== END 2020-10-28 13:38 | disposition home or self-care (01) | DRG 754 ==
LOC: M PSY 10-27 10:55
PROVIDERS: ADMIT Psychiatry & Neurology Psychiatry; ATTEND Psychiatry & Neurology Psychiatry
DX: F32.9 Major depressive disorder, single episode, unspecified (principal); F12.10 Cannabis abuse, uncomplicated; F43.10 Post-traumatic stress disorder, unspecified; Z91.5 Personal history of self-harm; Z81.8 Family history of other mental and behavioral disorders; Z63.4 Disappearance and death of family member; Z79.899 Other long term (current) drug therapy; Z56.0 Unemployment, unspecified

== ENCOUNTER → 2020-12-20 | Outpatient (REF) | payer OTHER ==
[2020-12-20 12:42] LABS: BASO # 0.1 10^3/uL (0.0-0.2); BASO % 0.8 % (0.0-1.0); EOS % 0.4 % (0.0-3.0); HEMATOCRIT 41.4 % (36.0-47.0); HEMOGLOBIN 13.5 g/dl (12.0-15.5); LYMPH # 2.5 10^3/uL (1.5-5.0); MEAN CORPUSCULAR HEMOGLOBIN 30.5 pg (27.0-33.0); MEAN CORPUSCULAR HGB CONC 32.6 g/dl (32.0-36.5); MEAN CORPUSCULAR VOLUME 93.5 fl (80.0-96.0); MONO # 0.6 10^3/uL (0.0-0.8); MONO % 8.6 % (2.0-8.0); NEUTROPHILS # 3.9 10^3/uL (1.5-8.5); NEUTROPHILS % 55.1 % (36.0-66.0); PLATELET COUNT, AUTOMATED 248 10^3/uL (150-450); RED BLOOD COUNT 4.43 10^6/uL (4.00-5.40); WHITE BLOOD COUNT 7.1 10^3/uL (4.0-10.0)
[2020-12-20 13:05] LABS: BLOOD UREA NITROGEN 9 MG/DL (7-18); CARBON DIOXIDE LEVEL 30 MEQ/L (21-32); CHLORIDE LEVEL 105 MEQ/L (98-107); CREATININE FOR GFR 0.77 MG/DL (0.55-1.30); GLOMERULAR FILTRATION RATE > 60.0 (>60); GLUCOSE, FASTING 93 MG/DL (70-100); POTASSIUM SERUM 4.7 MEQ/L (3.5-5.1); SODIUM LEVEL 138 MEQ/L (136-145)
[2020-12-20 13:06] LABS: ALBUMIN 4.9 GM/DL (3.2-5.2); ALT/SGPT 14 U/L (12-78); BILIRUBIN,TOTAL 0.7 MG/DL (0.2-1.0); CALCIUM LEVEL 9.6 MG/DL (8.5-10.1); TOTAL PROTEIN 8.4 GM/DL (6.4-8.2)
== END ==
LOC: M SFHCRHEU 10:44
PROVIDERS: ATTEND Internal Medicine
DX: M06.00 Rheumatoid arthritis without rheumatoid factor, unspecified site (principal)

== ENCOUNTER → 2021-03-06 | Outpatient (REF) | payer OTHER ==
[2021-03-06 12:56] LABS: HEMOGLOBIN 12.6 g/dl (12.0-15.5); MEAN CORPUSCULAR HEMOGLOBIN 31.5 pg (27.0-33.0); MEAN CORPUSCULAR HGB CONC 32.3 g/dl (32.0-36.5); MEAN CORPUSCULAR VOLUME 97.5 fl (80.0-96.0); PLATELET COUNT, AUTOMATED 267 10^3/uL (150-450); WHITE BLOOD COUNT 9.1 10^3/uL (4.0-10.0)
[2021-03-06 12:59] LABS: BASO % 0.4 % (0.0-1.0); EOS % 0.3 % (0.0-3.0); HEMATOCRIT 39.3 % (36.0-47.0); HEMOGLOBIN 12.8 g/dl (12.0-15.5); LYMPH # 1.8 10^3/uL (1.5-5.0); LYMPH % 19.8 % (24.0-44.0); MEAN CORPUSCULAR HEMOGLOBIN 31.9 pg (27.0-33.0); MEAN CORPUSCULAR HGB CONC 32.6 g/dl (32.0-36.5); MONO # 0.7 10^3/uL (0.0-0.8); MONO % 7.3 % (2.0-8.0); NEUTROPHILS # 6.5 10^3/uL (1.5-8.5); NEUTROPHILS % 71.8 % (36.0-66.0); PLATELET COUNT, AUTOMATED 273 10^3/uL (150-450); RED BLOOD COUNT 4.01 10^6/uL (4.00-5.40)
[2021-03-06 13:12] LABS: TOTAL PROTEIN,RANDOM URINE 9.3 MG/DL (0.0-12.0)
[2021-03-06 13:30] LABS: ALBUMIN 3.6 GM/DL (3.2-5.2); ALT/SGPT 16 U/L (12-78); BILIRUBIN,TOTAL 0.3 MG/DL (0.2-1.0); BLOOD UREA NITROGEN 5 MG/DL (7-18); CALCIUM LEVEL 9.1 MG/DL (8.5-10.1); CARBON DIOXIDE LEVEL 26 MEQ/L (21-32); CHLORIDE LEVEL 106 MEQ/L (98-107); CREATININE FOR GFR 0.39 MG/DL (0.55-1.30); GLOMERULAR FILTRATION RATE > 60.0 (>60); GLUCOSE, FASTING 74 MG/DL (70-100); POTASSIUM SERUM 4.5 MEQ/L (3.5-5.1); SODIUM LEVEL 138 MEQ/L (136-145); TOTAL PROTEIN 6.9 GM/DL (6.4-8.2)
[2021-03-06 14:34] LABS: HIV 1&2 SCREEN CENTAUR NEGATIVE (NEGATIVE)
== END ==
LOC: M SFHCADAM 10:41
PROVIDERS: ATTEND Advanced Practice Midwife
DX: M06.4 Inflammatory polyarthropathy (principal)

== ENCOUNTER → 2021-04-28 | Outpatient (CLI) | payer OTHER ==
--- NOTE | 2021-04-28 14:37 | REP ---
INDICATION: ANATOMY. COMPARISON: None. TECHNIQUE: Transabdominal obstetric sonography. FINDINGS: Scanning through the gravid uterus demonstrates a viable single intrauterine gestation in breech lie. motion is observed and heart rate is recorded at 143 beats per minute. A anterior placenta is seen, grade 0, without evidence of placenta previa. Closed cervical length is measured at 3.8 cm transabdominally. No extrauterine abnormality is observed. Amniotic fluid is subjectively normal. No anomaly is seen. The following anatomic structures are identified and felt to be sonographically unremarkable: cranium, choroid plexus, cavum, cerebellum and posterior fossa, face and profile, lungs, four-chamber heart with left and right ventricular outflow tract views, diaphragm, left-sided stomach, abdominal wall cord insertion, three-vessel umbilical cord, kidneys and bladder, spine, and upper and lower extremities. Biometry chart: BPD 5.0 cm, 21 weeks 0 days Head circumference 18.2 cm, 20 weeks 4 days Abdominal circumference 15.5 cm, 20 weeks 5 days Femur length 3.6 cm, 21 weeks 2 days Humeral length 3.4 cm, 21 weeks 4 days HC AC ratio normal 1.17 Cephalic index normal 0.76 Estimated weight 385 g, 0 lb 13 oz, 40th percentile for 21 weeks 0 days IMPRESSION: Viable single intrauterine gestation at 21 weeks 0 days by today's composite sonographic criteria. ANNE MARIE by today's sonography September 08, 2021. No complication identified. <Electronically signed by Evan Bennett > 04/28/21 [id number]
== END ==
LOC: M WHC 11:34
PROVIDERS: ATTEND Advanced Practice Midwife
DX: Z34.02 Encounter for supervision of normal first pregnancy, second trimester (principal)

== ENCOUNTER → 2021-06-09 | Outpatient (CLI) | payer OTHER ==
[2021-06-09 13:55] LABS: HEMATOCRIT 36.3 % (36.0-47.0); HEMOGLOBIN 11.9 g/dl (12.0-15.5); MEAN CORPUSCULAR HEMOGLOBIN 31.5 pg (27.0-33.0); MEAN CORPUSCULAR HGB CONC 32.8 g/dl (32.0-36.5); PLATELET COUNT, AUTOMATED 249 10^3/uL (150-450); RED BLOOD COUNT 3.78 10^6/uL (4.00-5.40); WHITE BLOOD COUNT 12.3 10^3/uL (4.0-10.0)
== END ==
LOC: M PLALAB 10:16
PROVIDERS: ATTEND Advanced Practice Midwife
DX: Z34.82 Encounter for supervision of other normal pregnancy, second trimester (principal)

== ENCOUNTER → 2021-08-01 | Outpatient (CLI) | payer OTHER ==
--- NOTE | 2021-08-01 14:46 | REP ---
INDICATION: GROWTH JENNI COMPARISON: 04/28/2021 TECHNIQUE: Transabdominal obstetrical ultrasound with color Doppler evaluation. FINDINGS: Examination demonstrates a single live intrauterine in cephalic presentation. motion is identified by technologist. Placenta is noted anterior and grade 2 without evidence for placenta previa or abruption. Amniotic fluid volume is normal. Cervix measures 3.1 cm in length and appears closed.. Selected gestational age: 34 weeks 4 days with ANNE MARIE 09/08/2021. Gestational age by current measurements 34 weeks 2 days with ANNE MARIE 09/10/2021. FHR equals 123 beats per minute. BPD: 8.5 cm at 34 weeks 3 days HC: 30.7 cm at 34 weeks 2 days AC: 29.7 cm at 33 weeks 5 days FL: 6.7 cm at 34 weeks 4 days HL: 5.9 cm at 34 weeks 1 day HC/AC: 1.03 Estimated weight 2341 grams (31stpercentile). JENNI: 19.5 cm Umbilical artery SD ratio: 2.10 (1.70-3.63) IMPRESSION: Single live intrauterine in cephalic presentation demonstrating appropriate interval growth. Amniotic fluid volume is normal. <Electronically signed by Carlos Cordon > 08/01/21 [id number]
== END ==
LOC: M WHC 10:37
PROVIDERS: ATTEND Advanced Practice Midwife
DX: Z34.03 Encounter for supervision of normal first pregnancy, third trimester (principal); Z3A.34 34 weeks gestation of pregnancy

== ENCOUNTER → 2021-08-08 | Outpatient (REF) | payer OTHER | LOC: M SFHCWAGY 12:59 | PROVIDERS: ATTEND Advanced Practice Midwife | DX: Z34.03 Encounter for supervision of normal first pregnancy, third trimester (principal) ==

== ENCOUNTER 2021-09-05 08:09 | Inpatient (IN) | payer OTHER ==
[~2021-09-05] VITALS: Ht 152.4 cm; Wt 84.2 kg
[2021-09-05] VITALS (16 sets, daily range): BP systolic 112–133; BP diastolic 54–89
[~2021-09-05 08:09] MED LIST changes: +ECOT81TA5 PO; +PRENTAB9 PO; +TUMS750C5 PO
[2021-09-05] MEDS ORDERED: HOME MED LIST COMPLETE! XX SCH (08:45)
[2021-09-05] MEDS ORDERED: **PENDING PCN ENTRY XX SCH (09:00)
--- NOTE | 2021-09-05 09:06 | HPEPDOC ---
Obstetrical History & Physical General Date of Admission Sep 05, 2021 at 08:09 History of Present Illness Patient is a 26-year-old female at 39 + 1/7 weeks by LMP consistent wit h 9 week US (EDC = 09/11/21) presents with induction of labor. No contractions, no bleeding. Good movement. Chief Complaint: Induction of labor Age: 26 : 1 Term: 0 Pre-term: 0 Abortions: 0 Livin Care Care: Good Care Dating Final EDC: Sep 11, 2021 Final EDC by: 1st trimester (US) Past Medical History Past Medical History Medical History H/o positive LUZ possibly 2/2 RA, uveitis, borderline personality disorder, anxiety, asthma, palpitations. Surgical History: Arabi teeth Family History Significant Family History: No pertinent family hx Social History Marital Status: Single Family situation: Spouse/partner home Psychosocial History: Anxiety, Personality disorder NOS * Smoker: former Smoker Alcohol: Denies Drugs: denies Allergies Coded Allergies: SEASONAL ALLERGIES (Verified Allergy, Mild, 08/15/21) sore throat,runny nose,itchy eyes Medications Scheduled Aspirin (Ecotrin) 81 Mg Tablet.dr, 81 MG PO DAILY No.137/Iron/Folic Acd ( Vitamin Tablet) 1 Each Tablet, 1 TAB PO DAILY Scheduled PRN Calcium Carbonate (Tums) 300 Mg Tab.chew, 2 TABS PO Q6HP PRN for INDIGESTION Physical Examination Physical Examination GENERAL: Alert and oriented times three. BREAST: . ABDOMEN: Gravid and non-tender to touch. FETUS: Is vertex (VTX) by sterile vaginal examination (SVE), fetus is vertex (VTX) by Saqib. HEART RATE: Regular rate and rhythm. LUNGS: Clear to auscultation (CTA). EXTREMITIES: No edema. No clonus. Laboratory Data 24H LABS Laboratory Tests 2 09/05/21 08:20: Serology Scanned Report Hepatitis B Testing Pertinent Laboratoy Data Blood Type: O+ Group B Streptococcus: Positive Assessment/Plan Assessment Patient is a 26-year-old G1 para P0000 at 39+1/7 weeks by 9-week ultrasound. Presents to Labor and Delivery (L&D) for induction of labor due to positive LUZ 2/2 RA and hypercoagulable state. Plan Admit and orient. Market President and consent. Diet: Regular. Group B Streptococcus (GBS) positive. Labs and intravenous (IV) per unit protocol. Counseled on Pitocin and induction of labor (IOL). C-S as appropriate. GME ATTESTATION GME ATTESTATION My faculty preceptor for this patient encounter was physically present during the encounter and was fully available. All aspects of the patient interview, examination, medical decision making process, and medical care plan development were reviewed and approved by the faculty preceptor. The faculty preceptor is aware and concurs with the plan as stated in the body of this note and will attest to such by his/her cosignature. MICKEY CALI OMS-3 Sep 05, 2021 09:06
[2021-09-05] MEDS ORDERED: PENICILLIN G POTASSIUM IV 5 MU in D5W MINI-BAG PLUS 100 ML IV STA (09:12)
[2021-09-05] MEDS ORDERED: LACTATED RINGER'S 1000 ML IV STA (09:12)
[2021-09-05] MEDS ORDERED: METHYLERGONOVINE MALEATE 0.2 MG/ML VIAL (J2210) IM PRN (09:15)
[2021-09-05] MEDS ORDERED: TRANEXAMIC ACID INJection 1,000 MG in NS 100 ML IV PRN (09:15)
[2021-09-05] MEDS ORDERED: CARBOPROST TROMETHAMINE 250 MCG/ML AMP IM PRN (09:15)
[2021-09-05] MEDS ORDERED: miSOPROStol 50MCG 1/2 TABLET PO ONE (09:15)
[2021-09-05 10:00] LABS: HEMATOCRIT 39.1 % (36.0-47.0); MEAN CORPUSCULAR HEMOGLOBIN 29.8 pg (27.0-33.0); MEAN CORPUSCULAR HGB CONC 33.2 g/dl (32.0-36.5); MEAN CORPUSCULAR VOLUME 89.7 fl (80.0-96.0); PLATELET COUNT, AUTOMATED 296 10^3/uL (150-450); RED BLOOD COUNT 4.36 10^6/uL (4.00-5.40); WHITE BLOOD COUNT 10.7 10^3/uL (4.0-10.0)
[2021-09-05] MEDS ORDERED: PENICILLIN G POTASSIUM IV 2.5 MU in IV 1 EA IV SCH (13:15)
[2021-09-05] MEDS ORDERED: miSOPROStol 50MCG 1/2 TABLET SL ONE ×2 (14:25→19:55)
--- NOTE | 2021-09-05 19:09 | IPNPDOC ---
Obstetrical Progress Note Date of Service Sep 05, 2021 Subjective Pt feeling ctx, rating them about a 4/10. Objective Vital Signs Date Time Temp Pulse Resp B/P (MAP) Pulse Ox O2 Delivery O2 Flow Rate FiO2 09/05/21 18:55 68 18 117/61 (79) 09/05/21 16:36 98.3 Assessment Heart Rate (FHR): 125 Variability: Moderate Accelerations: Positive Decelerations: None Heart Rate Tracing: Category I Tocometer Contractions: Yes Frequency: irregular Sterile Vaginal Examination Dilation: 2cm Effacement (%): 50% Station: -2 Cervical Consistency: Medium Cervical Position: Posterior Postion/Presentation: Cephalic presentation Assessment and Plan Age: 26 Status: Reassuring Group B Streptococcus: Positive Anticipate: Vaginal Delivery Additional Comments Con't miso at this time KRISTIN SMITH MD Sep 05, 2021 19:09
[2021-09-06] VITALS (38 sets, daily range): BP systolic 106–181; BP diastolic 52–99
--- NOTE | 2021-09-06 00:28 | IPNPDOC ---
Obstetrical Progress Note Date of Service Sep 06, 2021 Subjective Pt is comfortable, not feeling ctx right now Objective Vital Signs Date Time Temp Pulse Resp B/P (MAP) Pulse Ox O2 Delivery O2 Flow Rate FiO2 09/05/21 18:55 68 18 117/61 (79) 09/05/21 16:36 98.3 Assessment Heart Rate (FHR): 120 Variability: Moderate Accelerations: Positive Decelerations: None Heart Rate Tracing: Category I Tocometer Contractions: Yes Frequency: irregular Sterile Vaginal Examination Dilation: 2cm Effacement (%): 50% Station: -2 Cervical Consistency: Soft Cervical Position: Middle Assessment and Plan Age: 26 : 1 Term: 0 Status: Reassuring Group B Streptococcus: Positive Anticipate: Vaginal Delivery (repeat miso at this time) KRISTIN SMITH MD Sep 06, 2021 00:28
[2021-09-06] MEDS ORDERED: PENICILLIN G POTASSIUM IV 5 MU in D5W MINI-BAG PLUS 100 ML IV STA (00:47)
[2021-09-06] MEDS ORDERED: OXYTOCIN DRIP 30 UNITS in IV 1 EA IV SCH ×5 (00:50→14:05)
[2021-09-06] MEDS: LR 1,000 ML IV SCH ×2 (01:50→12:52)
[2021-09-06] MEDS ORDERED: ONDANSETRON 4MG/2ML VIAL IV PRN ×2 (02:30→12:05)
--- NOTE | 2021-09-06 06:07 | IPNPDOC ---
Obstetrical Progress Note Date of Service Sep 06, 2021 Subjective Pt is feeling ctx Objective Vital Signs Date Time Temp Pulse Resp B/P (MAP) Pulse Ox O2 Delivery O2 Flow Rate FiO2 09/06/21 05:13 97.8 82 18 122/71 (88) Assessment Heart Rate (FHR): 125 Variability: Moderate Accelerations: Positive Decelerations: None Heart Rate Tracing: Category I Tocometer Contractions: Yes Frequency: regular Assessment and Plan Age: 26 : 1 Term: 0 Status: Reassuring Group B Streptococcus: Positive Anticipate: Vaginal Delivery Additional Comments Cont PCN for GBS+ Con't RDP for IOL AROM when appropriate epidural PRN KRISTIN SMITH MD Sep 06, 2021 06:07
[2021-09-06] MEDS: PENICILLIN G POTASSIUM IV 2.5 MU in IV 1 EA IV SCH ×2 (06:13→10:18)
[2021-09-06] MEDS ORDERED: BUTORPHANOL 2 MG/ML INJ (J0595) IV ONE (07:45)
[2021-09-06] MEDS ORDERED: PROMETHAZINE INJ 25 MG/ML VIAL (J2550) IV ONE (07:45)
[2021-09-06] MEDS ORDERED: FENTANYL 2MCG/ML ROPIVACAINE 0.2% IN 0.9% NACL 100ML IVBAG As Ordered ONE (11:43)
[2021-09-06] MEDS ORDERED: FENTANYL/ROPIVACAINE/NACL BAG 100 ML EPIDURAL SCH (12:05)
[2021-09-06] MEDS ORDERED: EPIDURAL/PCA KEYS XX PRN (12:05)
[2021-09-06] MEDS ORDERED: diphenhydrAMINE 50MG/ML VIAL (J1200) IV PRN (12:05)
[2021-09-06] MEDS ORDERED: LACTATED RINGER'S 1000 ML IV PRN (12:05)
[2021-09-06] MEDS ORDERED: ePHEDrine SULFATE 25 MG/5 ML(5MG/ML) SYRINGE IV PRN (12:05)
[2021-09-06] MEDS ORDERED: REFRIGERATOR IV KEYS XX PRN (12:05)
[2021-09-06] MEDS ORDERED: EPIDURAL COMMENT XX SCH (12:05)
[2021-09-06] MEDS ORDERED: NALOXONE INJ 0.4MG/1ML VIAL (J2310 PER 1MG) IV PRN (12:05)
[2021-09-06] MEDS ORDERED: ACETAMINOPHEN TAB 650MG DOSE (2X325MG) PO PRN (14:05)
[2021-09-06] MEDS ORDERED: IBUPROFEN 600MG TAB PO PRN (14:05)
[2021-09-06] MEDS ORDERED: ACETAMINOPHEN 500 MG TAB PO PRN (14:05)
[2021-09-06] MEDS ORDERED: MEASLES,MUMPS,RUBELLA VACCINE INJ (MMR-II) (90707) SC SCH (14:05)
[2021-09-06] MEDS ORDERED: DOCUSATE SODIUM 100MG CAPSULE PO PRN (14:05)
[2021-09-06] MEDS ORDERED: RHOGAM 300 MCG (1500 IU) INJ (J2790) IM SCH (14:05)
[2021-09-06] MEDS ORDERED: METHYLERGONOVINE MALEATE 0.2 MG TAB PO PRN (14:05)
--- NOTE | 2021-09-06 14:49 | DN ---
DELIVERY NOTE DATE OF DELIVERY: 09/06/2021 Angeline is a 26-year-old 1, para 1-0-0-1 now, who was admitted to labor and delivery for induction of labor. Misoprostol and intravenous (IV) Pitocin was used, and labor did ensue. She used an epidural for her labor coping. She had spontaneous rupture of membranes at 1237 for a moderate amount of clear fluid. She was also fully dilated at 1230. She pushed to a normal spontaneous vaginal delivery of a live female infant in occiput anterior (OA) position with restitution to right occiput transverse (ROT) position at 1341. There was a nuchal cord times one loose that was reduced manually at the time of delivery. Shoulders delivered spontaneously, and corpus immediately followed. The was placed on the maternal abdomen crying and active. Mouth and nares were bulb suctioned. Cord was clamped times two once pulsations ceased and cut by the father of the baby under my direction. Spontaneous expulsion of an intact placenta with 3-vessel cord by Key mechanism was at 1346. uterine hemostasis was achieved with intravenous (IV) Pitocin rapid infusion and uterine fundal massage. Estimated blood loss 450 mL. Perineum and vagina inspected. Noted to have a first-degree midline laceration. The laceration was repaired with 3-0 Vicryl Rapide in the usual fashion under epidural anesthesia. [place] female weight is pending at this time. scores are 9 and 9. Family have named their daughter Mynor, and the mother plans to breast-feed. At the close of delivery, lap counts, needle counts, and instrument counts were correct and verified. [facility]
[2021-09-06] MEDS: IBUPROFEN 800 MG TAB PO PRN (16:39)
[2021-09-06] MEDS: PRENATAL VITAMINS CHEWABLE TABLET PO SCH (17:01)
[2021-09-07 06:00] VITALS: BP 133/86
[2021-09-07] MEDS: DIBUCAINE 1% OINTMENT 30GM TOP PRN (09:16)
[2021-09-07] MEDS: PRENATAL VITAMINS CHEWABLE TABLET PO SCH (09:16)
--- NOTE | 2021-09-07 13:23 | IPNPDOC ---
Progress Note Date of Service: Sep 07, 2021 Day#: 1 Progress Note SUBJECT: Status post . She has been ambulating, voiding spontaneously with out issue and tolerating regular diet. Lochia decreasing/minimal. Pain is well- controlled. Denies headache, visual changes, right upper quadrant pain, shortness breath or chest pain. OBJECTIVE: VITAL SIGNS: Within normal limits, afebrile. Alert and oriented times three. Abdomen: Fundus firm at U-2. Soft, NTTP. ASSESSMENT: Status post uncomplicated spontaneous vaginal delivery. Vitals within normal limits, afebrile, hemodynamically stable with no evidence of infection. PLAN: Discharge to home tomorrow. Tylenol and Motrin for pain. Routine instructions/precautions reviewed. Routine PP visit in 6 weeks in clinic. VS, I&O, 24H, Fishbone Vital Signs/I&O Vital Signs Date Time Temp Pulse Resp B/P (MAP) Pulse Ox O2 Delivery O2 Flow Rate FiO2 09/07/21 06:00 98.4 73 16 133/86 (102) 100 Room Air I&O- Last 24 Hours up to 6 AM 09/07/21 06:00 Intake Total 3969.3 ml Output Total 1600 ml Balance 2369.3 ml GABY RUBI DO Sep 07, 2021 13:23
[2021-09-07 18:00] VITALS: BP 131/84
[2021-09-08 06:15] VITALS: BP 125/81
[2021-09-08] MEDS: PRENATAL VITAMINS CHEWABLE TABLET PO SCH (09:19)
[2021-09-08] MEDS: DIBUCAINE 1% OINTMENT 30GM TOP PRN (16:35)
[2021-09-08] MEDS: IBUPROFEN 800 MG TAB PO PRN (16:35)
== END 2021-09-08 16:45 | disposition home or self-care (01) | DRG 560 ==
LOC: M LDI 08:09 → M OBS 09-06 16:00
PROVIDERS: ADMIT Obstetrics & Gynecology; ATTEND Advanced Practice Midwife
PROC: 3E0P7GC Introduction of Other Therapeutic Substance into Female Reproductive, Via Natural or Artificial Opening (ICD-10-PCS; 2021-09-05)
PROC: 10E0XZZ Delivery of Products of Conception, External Approach (ICD-10-PCS; principal; 2021-09-06)
PROC: 0HQ9XZZ Repair Perineum Skin, External Approach (ICD-10-PCS; 2021-09-06)
DX: O99.12 Other diseases of the blood and blood-forming organs and certain disorders involving the immune mechanism complicating childbirth (principal); D68.59 Other primary thrombophilia; M06.9 Rheumatoid arthritis, unspecified; O99.892 Other specified diseases and conditions complicating childbirth; Z3A.39 39 weeks gestation of pregnancy; O69.81X0 Labor and delivery complicated by cord around neck, without compression, not applicable or unspecified; Z37.0 Single live birth; O99.824 Streptococcus B carrier state complicating childbirth; O70.0 First degree perineal laceration during delivery

== ENCOUNTER → 2022-02-20 | Outpatient (REF) | payer OTHER ==
[~2022-02-20] MED LIST changes: +OMEP-173 PO; -OMEP-218 PO
== END ==
LOC: M PLALAB 07:54
PROVIDERS: ATTEND Advanced Practice Midwife
DX: Z12.4 Encounter for screening for malignant neoplasm of cervix (principal)

== ENCOUNTER 2022-11-14 18:32 | Emergency (ER) | payer OTHER ==
[~2022-11-14] VITALS: Ht 167.6 cm; Wt 73.8 kg
[2022-11-14] MEDS ORDERED: BOOSTRIX/ADACEL VACCINE (DIPHTH/PERTUSS/ACELL/TETANUS) 0.5ML SYR IM ONE (22:10)
[2022-11-14] MEDS ORDERED: LIDOCAINE 2% MDV 20ML VIAL SC ONE (22:10)
[2022-11-14 22:56] VITALS: BP 117/73
== END 2022-11-14 22:58 | disposition home or self-care (01) ==
LOC: M ED 18:32
DX: S61.411A Laceration without foreign body of right hand, initial encounter (principal); W26.8XXA Contact with other sharp object(s), not elsewhere classified, initial encounter; Y92.009 Unspecified place in unspecified non-institutional (private) residence as the place of occurrence of the external cause; Y93.89 Activity, other specified; Y99.8 Other external cause status; K21.9 Gastro-esophageal reflux disease without esophagitis; F41.9 Anxiety disorder, unspecified; F32.A Depression, unspecified; Z91.048 Other nonmedicinal substance allergy status; Z86.69 Personal history of other diseases of the nervous system and sense organs

== ENCOUNTER → 2023-02-04 | Outpatient (CLI) | payer OTHER ==
[2023-02-04 13:27] LABS: BASO # 0.1 10^3/uL (0.0-0.2); EOS # 0.1 10^3/uL (0.0-0.5); HEMATOCRIT 42.8 % (36.0-47.0); HEMOGLOBIN 13.6 g/dl (12.0-15.5); LYMPH # 2.5 10^3/uL (1.5-5.0); LYMPH % 40.1 % (24.0-44.0); MEAN CORPUSCULAR HEMOGLOBIN 29.8 pg (27.0-33.0); MEAN CORPUSCULAR HGB CONC 31.8 g/dl (32.0-36.5); MEAN CORPUSCULAR VOLUME 93.9 fl (80.0-96.0); MONO # 0.6 10^3/uL (0.0-0.8); MONO % 9.5 % (2.0-8.0); NEUTROPHILS % 48.2 % (36.0-66.0); PLATELET COUNT, AUTOMATED 292 10^3/uL (150-450); RED BLOOD COUNT 4.56 10^6/uL (4.00-5.40); WHITE BLOOD COUNT 6.1 10^3/uL (4.0-10.0)
[2023-02-04 13:54] LABS: C REACTIVE PROTEIN QUANTITATIV < 0.40 MG/DL (<1.0)
[2023-02-04 13:55] LABS: IMMUNOGLOBULIN A 216.8 MG/DL (40-350)
[2023-02-04 13:56] LABS: ALKALINE PHOSPHATASE 68 U/L (46-116); ALT/SGPT 18 U/L (7.0-40); AST/SGOT 25 U/L (<34); BILIRUBIN,DIRECT 0.2 MG/DL (<0.4); BILIRUBIN,TOTAL 0.6 MG/DL (0.3-1.2); BLOOD UREA NITROGEN 14 MG/DL (9-23); CARBON DIOXIDE LEVEL 28 MMOL/L (20-31); CHLORIDE LEVEL 105 MMOL/L (98-107); CREATININE FOR GFR 0.66 MG/DL (0.55-1.30); GLOMERULAR FILTRATION RATE > 60.0 (>60); GLUCOSE, FASTING 84 MG/DL (60-100); IMMUNOGLOBULIN G 1472 MG/DL (650-1600); IMMUNOGLOBULIN M 156.1 MG/DL (50-300); IRON (FE) 87 UG/DL (50-170); MAGNESIUM LEVEL 1.9 MG/DL (1.8-2.4); RHEUMATOID FACTOR QUANT 25.4 IU/ML (<14); SODIUM LEVEL 137 MMOL/L (136-145); THYROID STIMULATING HORMONE 1.337 uIU/ML (0.55-4.78); TOTAL 25(OH) VITAMIN D 34.1 NG/ML (20.0-100.0); TOTAL PROTEIN 7.5 G/DL (5.7-8.2); VITAMIN B12 LEVEL 314 PG/ML (211-911)
[2023-02-04 14:01] LABS: HEPATITIS B SURFACE ANTIBODY NEGATIVE (POSITIVE)
[2023-02-04 14:14] LABS: HEPATITIS B SURFACE ANTIGEN NEGATIVE (NEGATIVE)
[2023-02-04 14:38] LABS: CPK CREATINE PHOSPHOKINASE 160 U/L (34-145)
[2023-02-04 14:39] LABS: ERYTHROCYTE SEDIMENTATION RATE 11 mm/hr (0-20)
[2023-02-05 21:07] LABS: CYCLIC CITRULLINATED PEPTIDE 2 units (0-19); G6PD2 4.78 x10E6/uL (3.77-5.28); HEPATITIS B CORE ANTIBODY IGG Negative (Negative); SSA SJOGRENS A 0.2 AI (0.0-0.9); SSB SJOGRENS B <0.2 AI (0.0-0.9)
== END ==
LOC: M LABDRWAD 08:44
PROVIDERS: ATTEND Internal Medicine
DX: M06.9 Rheumatoid arthritis, unspecified (principal); M79.10 Myalgia, unspecified site

== ENCOUNTER → 2023-02-04 | Outpatient (CLI) | payer OTHER | LOC: M ADAMS 08:49 | PROVIDERS: ATTEND Internal Medicine | DX: M06.39 Rheumatoid nodule, multiple sites (principal) ==

== ENCOUNTER → 2023-09-09 | Outpatient (REF) | payer OTHER ==
[2023-09-09 13:51] LABS: HEMOGLOBIN 12.7 g/dl (12.0-15.5); MEAN CORPUSCULAR HEMOGLOBIN 31.4 pg (27.0-33.0); MEAN CORPUSCULAR HGB CONC 33.4 g/dl (32.0-36.5); MEAN CORPUSCULAR VOLUME 93.8 fl (80.0-96.0); PLATELET COUNT, AUTOMATED 274 10^3/uL (150-450); RED BLOOD COUNT 4.05 10^6/uL (4.00-5.40); WHITE BLOOD COUNT 9.9 10^3/uL (4.0-10.0)
[2023-09-09 14:33] LABS: CHLAMYDIA DNA AMPLIFICATION NEGATIVE (NEGATIVE); GC DNA AMPLIFICATION NEGATIVE (NEGATIVE)
[2023-09-09 14:46] LABS: HIV 1&2 SCREEN NEGATIVE (NEGATIVE)
[2023-09-09 14:54] LABS: HEPATITIS C VIRUS ABY INDEX 0.04 INDEX (<0.8)
== END ==
LOC: M PLALAB 10:32
PROVIDERS: ATTEND Advanced Practice Midwife
DX: Z34.91 Encounter for supervision of normal pregnancy, unspecified, first trimester (principal)

== ENCOUNTER → 2023-11-08 | Outpatient (CLI) | payer OTHER | LOC: M WHC 07:13 | PROVIDERS: ATTEND Advanced Practice Midwife | DX: Z34.92 Encounter for supervision of normal pregnancy, unspecified, second trimester (principal) ==

== ENCOUNTER → 2023-12-02 | Outpatient (CLI) | payer OTHER | LOC: M WHC 08:21 | PROVIDERS: ATTEND Advanced Practice Midwife | DX: Z34.92 Encounter for supervision of normal pregnancy, unspecified, second trimester (principal) ==

== ENCOUNTER → 2023-12-02 | Outpatient (CLI) | payer OTHER ==
[2023-12-02 13:40] LABS: HEMATOCRIT 35.2 % (36.0-47.0); HEMOGLOBIN 11.5 g/dl (12.0-15.5); MEAN CORPUSCULAR HEMOGLOBIN 31.4 pg (27.0-33.0); MEAN CORPUSCULAR HGB CONC 32.7 g/dl (32.0-36.5); MEAN CORPUSCULAR VOLUME 96.2 fl (80.0-96.0); PLATELET COUNT, AUTOMATED 281 10^3/uL (150-450); RED BLOOD COUNT 3.66 10^6/uL (4.00-5.40); WHITE BLOOD COUNT 11.7 10^3/uL (4.0-10.0)
[2023-12-02 15:00] LABS: GC DNA AMPLIFICATION NEGATIVE (NEGATIVE)
== END ==
LOC: M PLALAB 09:10
PROVIDERS: ATTEND Advanced Practice Midwife
DX: Z34.92 Encounter for supervision of normal pregnancy, unspecified, second trimester (principal)

== ENCOUNTER → 2024-02-19 | Outpatient (CLI) | payer OTHER ==
[~2024-02-19] MED LIST changes: +BUPR-597 PO; -BUPR300T92 PO
== END ==
LOC: M WHC 08:47
PROVIDERS: ATTEND Obstetrics & Gynecology
DX: O99.891 Other specified diseases and conditions complicating pregnancy (principal)

== ENCOUNTER → 2024-02-19 | Outpatient (REF) | payer OTHER | LOC: M SFHCWAGY 17:01 | PROVIDERS: ATTEND Obstetrics & Gynecology | DX: O99.891 Other specified diseases and conditions complicating pregnancy (principal); Z3A.00 Weeks of gestation of pregnancy not specified ==

== ENCOUNTER 2024-03-18 06:22 | Inpatient (IN) | payer OTHER ==
[~2024-03-18] VITALS: Ht 167.6 cm; Wt 84.0 kg
[2024-03-18 06:36] VITALS: BP 127/73
[2024-03-18 06:50] VITALS: BP 122/78
[2024-03-18 07:05] VITALS: BP 125/79
[2024-03-18] MEDS: OXYTOCIN INJ 10UNITS/ML 1ML VIAL IM PRN (07:08)
[2024-03-18 07:20] VITALS: BP 128/84
[2024-03-18] MEDS ORDERED: DOCUSATE SODIUM 100MG CAPSULE PO PRN (07:40)
[2024-03-18] MEDS ORDERED: METHYLERGONOVINE MALEATE 0.2 MG TAB PO PRN (07:40)
[2024-03-18] MEDS ORDERED: RHO(D) IMMUNE GLOBULIN/MALTOSE 500MCG(2500IU)/2.2ML VIAL (WINRHO) IM SCH (07:40)
[2024-03-18] MEDS ORDERED: ACETAMINOPHEN TAB 650MG DOSE (2X325MG) PO PRN (07:40)
[2024-03-18] MEDS ORDERED: DIBUCAINE 1% OINTMENT 30GM TOP PRN (07:40)
[2024-03-18] MEDS ORDERED: IBUPROFEN 600MG TAB PO PRN (07:40)
[2024-03-18] MEDS ORDERED: ACETAMINOPHEN 500 MG TAB PO PRN (07:40)
[2024-03-18 08:05] LABS: HEMATOCRIT 30.8 % (36.0-47.0); HEMOGLOBIN 10.2 g/dl (12.0-15.5); MEAN CORPUSCULAR HEMOGLOBIN 28.5 pg (27.0-33.0); MEAN CORPUSCULAR HGB CONC 33.1 g/dl (32.0-36.5); PLATELET COUNT, AUTOMATED 266 10^3/uL (150-450); RED BLOOD COUNT 3.58 10^6/uL (4.00-5.40); WHITE BLOOD COUNT 13.8 10^3/uL (4.0-10.0)
[2024-03-18] MEDS: PRENATAL VITAMINS CHEWABLE TABLET PO SCH (08:29)
[2024-03-18 09:10] VITALS: BP 117/72; O2SAT 100
[2024-03-18 17:51] VITALS: BP 128/69; O2SAT 100
[2024-03-18] MEDS: IBUPROFEN 800 MG TAB PO PRN (20:55)
[2024-03-19 05:30] VITALS: BP 121/77; O2SAT 100
[2024-03-20] MEDS ORDERED: MEASLES,MUMPS,RUBELLA VACCINE INJ (MMR-II) SC.IMMUN ONE (09:00)
== END 2024-03-19 14:20 | disposition home or self-care (01) | DRG 544 ==
LOC: M LDI 06:22 → M OBS 09:01
PROVIDERS: ADMIT Specialist; ATTEND Specialist
PROC: 10D17ZZ Extraction of Products of Conception, Retained, Via Natural or Artificial Opening (ICD-10-PCS; principal; 2024-03-18)
DX: O73.1 Retained portions of placenta and membranes, without hemorrhage (principal); Z3A.39 39 weeks gestation of pregnancy

== ENCOUNTER 2024-05-08 02:10 | Emergency (ER) | payer OTHER ==
[~2024-05-08] VITALS: Ht 170.2 cm; Wt 77.3 kg
[2024-05-08 03:06] LABS: BASO % 0.2 % (0.0-1.0); EOS # 0.1 10^3/uL (0.0-0.5); EOS % 0.3 % (0.0-3.0); HEMATOCRIT 34.3 % (36.0-47.0); HEMOGLOBIN 10.9 g/dl (12.0-15.5); LYMPH # 0.9 10^3/uL (1.5-5.0); LYMPH % 5.1 % (24.0-44.0); MEAN CORPUSCULAR HEMOGLOBIN 25.9 pg (27.0-33.0); MEAN CORPUSCULAR HGB CONC 31.8 g/dl (32.0-36.5); MEAN CORPUSCULAR VOLUME 81.5 fl (80.0-96.0); MONO # 1.4 10^3/uL (0.0-0.8); MONO % 7.8 % (2.0-8.0); NEUTROPHILS # 15.5 10^3/uL (1.5-8.5); NEUTROPHILS % 86.3 % (36.0-66.0); PLATELET COUNT, AUTOMATED 352 10^3/uL (150-450); RED BLOOD COUNT 4.21 10^6/uL (4.00-5.40); WHITE BLOOD COUNT 17.9 10^3/uL (4.0-10.0)
[2024-05-08 03:27] LABS: LIPASE 32 U/L (12-53)
[2024-05-08 03:29] LABS: ALBUMIN 4.2 G/DL (3.2-5.2); ALKALINE PHOSPHATASE 101 U/L (46-116); ALT/SGPT 31 U/L (7.0-40); AST/SGOT 26 U/L (<34); BILIRUBIN,DIRECT 0.1 MG/DL (<0.4); BILIRUBIN,TOTAL 0.4 MG/DL (0.3-1.2); BLOOD UREA NITROGEN 14 MG/DL (9-23); CALCIUM LEVEL 8.9 MG/DL (8.5-10.1); CARBON DIOXIDE LEVEL 27 MMOL/L (20-31); CHLORIDE LEVEL 107 MMOL/L (98-107); GLOMERULAR FILTRATION RATE > 60.0 (>60); GLUCOSE, FASTING 138 MG/DL (60-100); POTASSIUM SERUM 3.9 MMOL/L (3.5-5.1); SODIUM LEVEL 141 MMOL/L (136-145); TOTAL PROTEIN 7.5 G/DL (5.7-8.2)
[2024-05-08 03:32] LABS: HCG, SERUM QUALITATIVE NEGATIVE (NEGATIVE)
[2024-05-08 04:40] VITALS: BP 137/82; TEMP 98.1; O2SAT 100
== END 2024-05-08 05:20 | disposition left against medical advice (07) ==
LOC: M ED 02:10
DX: Z53.21 Procedure and treatment not carried out due to patient leaving prior to being seen by health care provider (principal)

== ENCOUNTER → 2024-05-14 | Outpatient (REF) | payer OTHER | LOC: M LAB REF 17:16 | PROVIDERS: ATTEND Surgery | DX: D23.9 Other benign neoplasm of skin, unspecified (principal) ==

== ENCOUNTER → 2024-06-02 | Outpatient (REF) | payer OTHER ==
[2024-06-05 15:02] LABS: HPV APTIMA Not Detected (Not Detected)
== END ==
LOC: M SFHCWAGY 15:02
PROVIDERS: ATTEND Advanced Practice Midwife
DX: Z12.4 Encounter for screening for malignant neoplasm of cervix (principal); R87.610 Atypical squamous cells of undetermined significance on cytologic smear of cervix (ASC-US)

== ENCOUNTER 2025-07-14 20:26 | Emergency (ER) | payer MEDICARE, OTHER ==
[~2025-07-14] VITALS: Ht 167.6 cm; Wt 84.6 kg
[~2025-07-14 20:26] MED LIST changes: -BUPR-597 PO; +BUPR-766 PO; +BUPR150T15 PO; -BUPR1TAB53 PO
[2025-07-14 22:00] VITALS: BP 122/81; TEMP 98.9; O2SAT 99
== END 2025-07-14 22:07 | disposition home or self-care (01) ==
LOC: M ED 20:26
DX: S60.211A Contusion of right wrist, initial encounter (principal); Y92.9 Unspecified place or not applicable; Y93.9 Activity, unspecified; Y99.9 Unspecified external cause status; Y04.8XXA Assault by other bodily force, initial encounter; Z3A.09 9 weeks gestation of pregnancy; F41.9 Anxiety disorder, unspecified; F31.9 Bipolar disorder, unspecified; Z88.8 Allergy status to other drugs, medicaments and biological substances; Z91.09 Other allergy status, other than to drugs and biological substances; Z79.810 Long term (current) use of selective estrogen receptor modulators (SERMs)

== ENCOUNTER → 2025-07-23 | Outpatient (REF) | payer MEDICARE | LOC: M PLALAB 14:36 | PROVIDERS: ATTEND Advanced Practice Midwife | DX: Z53.9 Procedure and treatment not carried out, unspecified reason (principal) ==

== ENCOUNTER → 2025-07-27 | Outpatient (REF) | payer MEDICARE | LOC: M PLALAB 09:16 | PROVIDERS: ATTEND Advanced Practice Midwife | DX: Z53.9 Procedure and treatment not carried out, unspecified reason (principal) ==

== ENCOUNTER → 2025-07-27 | Outpatient (CLI) | payer MEDICARE ==
[2025-07-27 13:49] LABS: PLATELET COUNT, AUTOMATED 326 10^3/uL (150-450)
[2025-07-27 14:28] LABS: HIV 1&2 SCREEN NEGATIVE (NEGATIVE)
[2025-07-27 14:37] LABS: HEPATITIS C VIRUS ABY INDEX < 0.02 INDEX (<0.8)
[2025-07-27 15:20] LABS: Trichomonas vaginalis (AMP) NOT DETECTED (NEGATIVE)
[2025-07-27 15:44] LABS: GC DNA AMPLIFICATION NEGATIVE (NEGATIVE)
== END ==
LOC: M LABDRWAD 09:36
PROVIDERS: ATTEND Advanced Practice Midwife
DX: Z34.80 Encounter for supervision of other normal pregnancy, unspecified trimester (principal); Z11.3 Encounter for screening for infections with a predominantly sexual mode of transmission; Z11.59 Encounter for screening for other viral diseases; Z79.899 Other long term (current) drug therapy

== ENCOUNTER → 2025-09-28 | Outpatient (CLI) | payer OTHER | LOC: M WHC 09:14 | PROVIDERS: ATTEND Advanced Practice Midwife | DX: Z36.89 Encounter for other specified antenatal screening (principal) ==